=== PATIENT | female | born 1955 | race Caucasian/White ===

== ENCOUNTER → 2017-01-05 | Outpatient (CLI) | payer OTHER | LOC: KOH-I 14:06 | DX: F17.210 Nicotine dependence, cigarettes, uncomplicated (principal) | CPT/HCPCS: G0297 ==

== ENCOUNTER 2017-03-18 08:54 | Emergency (ER) | payer OTHER ==
[2017-03-18 10:36] LABS: HEMOGLOBIN 13.7 gm/dl (12.3-15.3); RED BLOOD COUNT 4.3 M/UL (4.00-5.10); WHITE BLOOD COUNT 5.7 K/UL (4.5-11.0)
[2017-03-18 10:58] LABS: BUN/CREATININE RATIO 11 (0-10)
== END 2017-03-18 11:50 | disposition home or self-care (01) ==
LOC: ER1 08:54
PROVIDERS: Physician Assistant
DX: S01.112A Laceration without foreign body of left eyelid and periocular area, initial encounter (principal); W18.12XA Fall from or off toilet with subsequent striking against object, initial encounter; Y92.008 Other place in unspecified non-institutional (private) residence as the place of occurrence of the external cause; E11.9 Type 2 diabetes mellitus without complications; I10 Essential (primary) hypertension; F03.90 Unspecified dementia, unspecified severity, without behavioral disturbance, psychotic disturbance, mood disturbance, and anxiety; F17.200 Nicotine dependence, unspecified, uncomplicated; Z88.2 Allergy status to sulfonamides; Z88.8 Allergy status to other drugs, medicaments and biological substances
CPT/HCPCS: 12011; 36415; 70450; 71010; 72125; 80053; 82550; 82553; 82962; 83874; 84484; 85025; 93005; 99284

== ENCOUNTER 2020-11-16 20:03 | Observation (INO) | payer MEDICARE, OTHER ==
[~2020-11-16] VITALS: Ht 160 cm; Wt 58.5 kg
[~2020-11-16 20:03] MED LIST: ABILIFY 5 MG TAB5 MG PO; ARICEPT10 MG PO; ASPIR 8181 MG PO; ATIVAN1 MG PO; BENZTROPINE MESY1 MG PO; COZAAR25 MG PO; DITROPAN 5 MG TA5 MG PO; FOLIC ACID0.8 MG PO; GEODON60 MG PO; GLUCOPHAGE1000 MG PO; HALOPERIDOL0.5 MG PO; LIPITOR TAB 2020 MG PO; LISINOPRIL10 MG PO; MELATONIN3 MG PO; METFORMIN HCL1000 MG PO; METOPROLOL SUCC50 MG PO; NAMENDA XR14 MG PO; OMNICEF 300 MG300 MG PO; OXYBUTYNIN CHLOR5 MG PO; PLAVIX 75 MG TA75 MG PO; PROTONIX 40 MG40 MG PO; PROTONIX40 MG PO; SEROQUEL25 MG PO; SODIUM CHLORIDE1 G1 PO; TAPAZOLE5 MG PO; VIT D PO
[2020-11-16 20:28] LABS: HEMOGLOBIN 10.7 gm/dl (12.3-15.3); RED BLOOD COUNT 3.71 M/UL (4.00-5.10); WHITE BLOOD COUNT 6.3 K/UL (4.5-11.0)
[2020-11-16 20:51] LABS: BUN/CREATININE RATIO 22 (0-10)
[2020-11-17 12:08] LABS: BUN/CREATININE RATIO 19 (0-10)
[2020-11-18 05:05] LABS: HEMOGLOBIN 10.7 gm/dl (12.3-15.3); RED BLOOD COUNT 3.66 M/UL (4.00-5.10); WHITE BLOOD COUNT 6.3 K/UL (4.5-11.0)
[2020-11-18 05:23] LABS: BUN/CREATININE RATIO 21 (0-10)
== END 2020-11-18 13:34 | disposition home or self-care (01) ==
LOC: ER1 20:03 → CDU 23:00 → MED SURG 4 23:00
PROVIDERS: Emergency Medicine; Physician Assistant; ADMIT Internal Medicine
DX: R07.89 Other chest pain (principal); I10 Essential (primary) hypertension; E78.5 Hyperlipidemia, unspecified; E05.90 Thyrotoxicosis, unspecified without thyrotoxic crisis or storm; J44.9 Chronic obstructive pulmonary disease, unspecified; F17.210 Nicotine dependence, cigarettes, uncomplicated; E87.1 Hypo-osmolality and hyponatremia; F31.9 Bipolar disorder, unspecified; F03.90 Unspecified dementia, unspecified severity, without behavioral disturbance, psychotic disturbance, mood disturbance, and anxiety; D64.9 Anemia, unspecified; E11.9 Type 2 diabetes mellitus without complications; I34.0 Nonrheumatic mitral (valve) insufficiency; R00.0 Tachycardia, unspecified; Z85.118 Personal history of other malignant neoplasm of bronchus and lung; Z92.3 Personal history of irradiation; Z87.01 Personal history of pneumonia (recurrent); Z86.73 Personal history of transient ischemic attack (TIA), and cerebral infarction without residual deficits; Z82.49 Family history of ischemic heart disease and other diseases of the circulatory system; Z20.822 Contact with and (suspected) exposure to COVID-19; Z88.0 Allergy status to penicillin; Z88.2 Allergy status to sulfonamides; Z88.8 Allergy status to other drugs, medicaments and biological substances; Z79.02 Long term (current) use of antithrombotics/antiplatelets; Z79.82 Long term (current) use of aspirin; Z79.899 Other long term (current) drug therapy
CPT/HCPCS: ECHO; 36415; 71045; 80048; 80053; 82550; 82553; 83690; 83735; 83874; 83880; 84100; 84484; 85025; 85610; 85730; 93005; 93306; 94640; 94664; 94760; 96374; 96375; 96376; 99285; G0378; J1885; J3475; Q9967; U0002

== ENCOUNTER → 2020-12-23 | Outpatient (CLI) | payer MEDICARE, OTHER ==
[2020-12-23 09:42] LABS: HEMOGLOBIN 11.2 gm/dl (12.3-15.3); RED BLOOD COUNT 3.76 M/UL (4.00-5.10); WHITE BLOOD COUNT 4.5 K/UL (4.5-11.0)
== END ==
LOC: LAB 09:18
PROVIDERS: Nurse Practitioner Family
DX: E05.90 Thyrotoxicosis, unspecified without thyrotoxic crisis or storm (principal); F32.9 Major depressive disorder, single episode, unspecified
CPT/HCPCS: 36415; 84439; 84443; 85025

== ENCOUNTER → 2021-01-28 | Outpatient (CLI) | payer MEDICARE, OTHER ==
[2021-01-28 13:26] LABS: HEMOGLOBIN 11.6 gm/dl (12.3-15.3); RED BLOOD COUNT 3.91 M/UL (4.00-5.10); WHITE BLOOD COUNT 4.4 K/UL (4.5-11.0)
== END ==
LOC: CT 12:36
PROVIDERS: Nurse Practitioner Family
DX: C34.12 Malignant neoplasm of upper lobe, left bronchus or lung (principal); E05.90 Thyrotoxicosis, unspecified without thyrotoxic crisis or storm; R91.1 Solitary pulmonary nodule
CPT/HCPCS: 36415; 71260; 82565; 84439; 84443; 85025; Q9963

== ENCOUNTER → 2021-06-18 | Outpatient (CLI) | payer MEDICARE | LOC: RAD 13:17 | DX: M54.9 Dorsalgia, unspecified (principal); M25.551 Pain in right hip; M25.552 Pain in left hip; M41.9 Scoliosis, unspecified; M76.892 Other specified enthesopathies of left lower limb, excluding foot; M76.891 Other specified enthesopathies of right lower limb, excluding foot | CPT/HCPCS: 72110; 73522 ==

== ENCOUNTER → 2021-07-14 | Outpatient (CLI) | payer MEDICARE | LOC: MAMO 08:14 | DX: Z12.31 Encounter for screening mammogram for malignant neoplasm of breast (principal) | CPT/HCPCS: 77063; 77067 ==

== ENCOUNTER → 2021-07-28 | Outpatient (CLI) | payer MEDICARE ==
[2021-07-28 09:30] LABS: HEMOGLOBIN 12.2 gm/dl (12.3-15.3); RED BLOOD COUNT 3.93 M/UL (4.00-5.10)
[2021-07-28 09:43] LABS: BUN/CREATININE RATIO 14 (0-10)
== END ==
LOC: CT 08:54
PROVIDERS: Internal Medicine Hematology & Oncology
DX: C34.12 Malignant neoplasm of upper lobe, left bronchus or lung (principal)
CPT/HCPCS: 36415; 71260; 80053; 85025; Q9967

== ENCOUNTER → 2021-08-23 | Outpatient (CLI) | payer MEDICARE | LOC: LAB 10:42 | DX: E05.00 Thyrotoxicosis with diffuse goiter without thyrotoxic crisis or storm (principal) | CPT/HCPCS: 36415; 84439; 84443 ==

== ENCOUNTER 2021-10-06 16:32 | Emergency (ER) | payer MEDICARE | END 2021-10-06 17:49 | disposition left against medical advice (07) | LOC: ER1 16:32 | DX: Z53.21 Procedure and treatment not carried out due to patient leaving prior to being seen by health care provider (principal) ==

== ENCOUNTER → 2021-11-15 | Outpatient (CLI) | payer MEDICARE | LOC: CT 11-12 08:30 | DX: C34.90 Malignant neoplasm of unspecified part of unspecified bronchus or lung (principal); R41.82 Altered mental status, unspecified; R14.0 Abdominal distension (gaseous); E05.00 Thyrotoxicosis with diffuse goiter without thyrotoxic crisis or storm | CPT/HCPCS: 36415; 70450; 71250; 84439; 84443; Q9967 ==

== ENCOUNTER → 2021-12-29 | Outpatient (CLI) | payer MEDICARE ==
[~2021-12-29] VITALS: Ht 154.9 cm; Wt 68.0 kg
== END ==
LOC: EROP 10:56
DX: U07.1 COVID-19 (principal); Z23 Encounter for immunization; I10 Essential (primary) hypertension; E11.9 Type 2 diabetes mellitus without complications; Z86.73 Personal history of transient ischemic attack (TIA), and cerebral infarction without residual deficits; Z85.118 Personal history of other malignant neoplasm of bronchus and lung
CPT/HCPCS: M0247; Q0247

== ENCOUNTER → 2022-01-26 | Outpatient (CLI) | payer MEDICARE ==
[2022-01-26 08:35] LABS: HEMOGLOBIN 13.4 gm/dl (12.3-15.3); RED BLOOD COUNT 4.33 M/UL (4.00-5.10); WHITE BLOOD COUNT 5.1 K/UL (4.5-11.0)
[2022-01-26 09:19] LABS: BUN/CREATININE RATIO 16 (0-10)
== END ==
LOC: CT 08:08
PROVIDERS: Internal Medicine Hematology & Oncology
DX: C34.12 Malignant neoplasm of upper lobe, left bronchus or lung (principal); R91.8 Other nonspecific abnormal finding of lung field; R91.1 Solitary pulmonary nodule
CPT/HCPCS: 36415; 71260; 80053; 85025; Q9967

== ENCOUNTER → 2022-02-01 | Outpatient (CLI) | payer MEDICARE | LOC: MRI 12-17 10:00 | DX: K83.8 Other specified diseases of biliary tract (principal); Z90.49 Acquired absence of other specified parts of digestive tract | CPT/HCPCS: 36415; 74181; 80076 ==

== ENCOUNTER → 2022-03-24 | Outpatient (CLI) | payer MEDICARE | LOC: KOH-I 10:29 | DX: M25.552 Pain in left hip (principal); M79.605 Pain in left leg; M16.12 Unilateral primary osteoarthritis, left hip; W19.XXXA Unspecified fall, initial encounter | CPT/HCPCS: 73502; 73552 ==

== ENCOUNTER → 2022-07-08 | Outpatient (CLI) | payer MEDICARE | LOC: US 14:45 | DX: I73.9 Peripheral vascular disease, unspecified (principal) | CPT/HCPCS: 93925 ==